=== PATIENT | female | born 1955 | race Caucasian/White ===

== ENCOUNTER 2018-01-11 19:21 | Emergency (ER) | payer OTHER, BC ==
--- NOTE | 2018-01-11 19:45 | PDOC ---
Rapid Medical Evaluation Time Seen by Provider: 01/11/18 19:43 Medical Evaluation: 01/11/18 19:43 I have performed a brief in-person evaluation of this patient. The patient presents with a chief complaint of:R knee pain s/p mechanical fall yesterday Pertinent physical exam findings:abrasion to L elbow, no R knee swelling, FROMI , able to ambulate I have ordered the following:nothing The patient will proceed to the ED for further evaluation. Discharge Disposition - Diagnosis Knee injury Qualifiers: Encounter type: initial encounter Laterality: right Qualified Code(s): S89.91XA - Unspecified injury of right lower leg, initial encounter - Referrals - Patient Instructions - Post Discharge Activity
[2018-01-11 19:48] VITALS: BP 156/72; PULSE 97; TEMP 98.7; BMI 24.7
[2018-01-11] MEDS ORDERED: IBUPROFEN 600 MG TABLET (FP) PO ONE ×2 (20:16→20:25)
--- NOTE | 2018-01-11 20:20 | PDOC ---
History of Present Illness - General Chief Complaint: Pain Stated Complaint: FALL/INJURY Time Seen by Provider: 01/11/18 19:43 History Source: Patient Exam Limitations: No Limitations - History of Present Illness Initial Comments: 01/11/18 20:16 pt slipped and fell at work yesterday injured right knee. pt has continued pain to the knee. Past History - Past Medical History Allergies/Adverse Reactions: Allergies Allergy/AdvReac Type Severity Reaction Status Date / Time Penicillins Allergy Severe Hives Verified 01/11/18 19:49 Home Medications: Ambulatory Orders Naproxen [Naprosyn -] 500 mg PO BID #14 tablet 01/11/18 COPD: No Other medical history: Pt denies - Suicide/Smoking/Psychosocial Hx Smoking History: Never smoked Have you smoked in the past 12 months: No Information on smoking cessation initiated: No Hx Alcohol Use: No Drug/Substance Use Hx: No Substance Use Type: None Review of Systems - Review of Systems Able to Perform ROS?: Yes Is the patient limited German proficient: No Constitutional: No: Symptoms Reported Musculoskeletal: Yes: Symptoms Reported *Physical Exam - Vital Signs Last Vital Signs Temp Pulse Resp BP Pulse Ox 98.7 F 97 H 20 156/72 100 01/11/18 19:46 01/11/18 19:46 01/11/18 19:46 01/11/18 19:46 01/11/18 19:46 - Physical Exam General Appearance: Yes: Nourished, Appropriately Dressed HEENT: positive: EOMI, NIKKIE Extremity: positive: Normal Capillary Refill, Tender (medially right knee , soft tissue tenderness, FROM mild swelling noted ) Integumentary: positive: Normal Color, Dry, Warm Neurologic: positive: Fully Oriented, Alert, Normal Mood/Affect, Normal Response , Motor Strength 5/5 Procedures - Splinting Pre-Made Type: knee immobilizer ED Treatment Course - RADIOLOGY Radiology Studies Ordered: Category Date Time Status KNEE 3 POS-RIGHT [RAD] Stat Radiology 01/11/18 20:16 Ordered Medical Decision Making - Medical Decision Making 01/11/18 20:17 cc: right knee injury yesterday at work will get xray to r/o fracture ibuprofen for pain now ortho follow up *DC/Admit/Observation/Transfer Diagnosis at time of Disposition: Knee injury Qualifiers: Encounter type: initial encounter Laterality: right Qualified Code(s): S89.91XA - Unspecified injury of right lower leg, initial encounter - Discharge Dispostion Disposition: HOME Condition at time of disposition: Good - Prescriptions Prescriptions: Naproxen [Naprosyn -] 500 mg PO BID #14 tablet - Referrals Referrals: Lanny Christine MD [Primary Care Provider] - Kulwant Frederick MD [Staff Physician] - - Patient Instructions Additional Instructions: follow with the orthopedist next week elevate and apply ice every 2hrs for 20 minutes take naprosyn for pain as needed, you can also try an over the counter aspercream or icy hot to rub into the muscle areas use the knee immobilizer while awake remove to sleep and bathe - Post Discharge Activity
== END 2018-01-11 21:13 | disposition home or self-care (01) ==
LOC: JERFT 19:21
DX: S89.81XA Other specified injuries of right lower leg, initial encounter (principal); W18.39XA Other fall on same level, initial encounter; Y93.89 Activity, other specified; Y92.218 Other school as the place of occurrence of the external cause; Y99.0 Civilian activity done for income or pay
CPT/HCPCS: 73562-TC-RT-FY; 99281-25

== ENCOUNTER → 2022-04-11 | Day surgery (SDC) | payer OTHER | END | disposition home or self-care (01) | LOC: JRADIR 10:33 | PROVIDERS: ATTEND Internal Medicine Endocrinology, Diabetes & Metabolism | PROC: 0G9H3ZX Drainage of Right Thyroid Gland Lobe, Percutaneous Approach, Diagnostic (ICD-10-PCS; principal; 2022-04-11) | DX: E04.1 Nontoxic single thyroid nodule (principal) | CPT/HCPCS: 10005; 76942; 88173; 88305-TC ==

== ENCOUNTER 2022-06-01 20:43 | Emergency (ER) | payer OTHER ==
[2022-06-01 21:00] VITALS: RESP 20; TEMP 98.7; BMI 30.7
[2022-06-01] MEDS ORDERED: MAG HYDROX/AL HYDROX/SIMETH 30 ML UNIT-DOSE CUP PO ONE (21:38)
[2022-06-01] MEDS ORDERED: FAMOTIDINE 20 MG/50 ML IVPB 20 MG/50 ML MG IVPB ONE ×2 (21:38→21:55)
[2022-06-01] MEDS ORDERED: ONDANSETRON 4 MG/2 ML VIAL IVPUSH ONE (21:38)
[2022-06-01] MEDS ORDERED: SODIUM CHLORIDE 0.9% 1000 ML INFUS.BAG IV ONE (21:38)
[2022-06-01] MEDS ORDERED: ACETAMINOPHEN 1000 MG/100 ML BAG IVPB ONE (21:38)
[2022-06-01 21:53] LABS: EPI CELLS 1 /uL (0-25.1); HYALINE CASTS 1 /uL (0-3.1); URINE APPEARANCE CLOUDY; URINE BACTERIA 6478 /uL (0-1359); URINE BILIRUBIN NEGATIVE (NEGATIVE); URINE COLOR RED; URINE GLUCOSE (UA) NEGATIVE (NEGATIVE); URINE KETONE NEGATIVE (NEGATIVE); URINE LEUK ESTERASE 3+ (NEGATIVE); URINE NITRITE NEGATIVE (NEGATIVE); URINE PROTEIN 2+ (NEGATIVE); URINE RBC 904 /uL (0-23.9); URINE UROBILINOGEN 0.2 mg/dL (0.2-1.0); URINE WBC 964 /uL (0-25.8)
[2022-06-01] MEDS ORDERED: ACETAMINOPHEN INJECTION 100 ML IVPB ONE (21:55)
[2022-06-01] MEDS ORDERED: MAG HYDROX/AL HYDROX/SIMETH 30 ML UNIT-DOSE CUP ONE (21:55)
[2022-06-01] MEDS ORDERED: ONDANSETRON 4 MG/2 ML VIAL ONE (21:55)
[2022-06-01] MEDS ORDERED: CEFTRIAXONE 1 GM in DEXTROSE 5%-WATER - 100 ML IVPB ONE (22:22)
[2022-06-01 22:32] LABS: BASO % 0.6 % (0-2.0); EOS % 0.9 % (0-4.5); HEMATOCRIT 37.2 % (32.4-45.2); HEMOGLOBIN 12.5 GM/dL (10.7-15.3); MCHC 33.6 g/dl (32.0-36.0); MEAN CELL VOLUME 86.2 fl (80-96); MEAN PLT VOLUME 8.6 fl (7.5-11.1); MONO % 8.5 % (3.8-10.2); PLATELET COUNT 296 10^3/uL (134-434); RBC 4.31 M/mm3 (3.60-5.2); RDW 13.2 % (11.6-15.6); WHITE BLOOD COUNT 12.1 K/mm3 (4.0-10.0)
[2022-06-01 22:39] LABS: INR 1.08 (0.83-1.09); PROTHROMBIN TIME (PATIENT) 12.5 SEC (9.7-13.0)
[2022-06-01 22:42] LABS: ACTIVATED PTT 27.8 SECONDS (25.2-36.5)
[2022-06-01 22:47] LABS: ALBUMIN 3.9 g/dl (3.4-5.0); BLOOD UREA NITROGEN 15.2 mg/dL (7-18); CALCIUM 9.5 mg/dL (8.5-10.1)
[2022-06-01 22:50] LABS: CREATININE 0.7 mg/dL (0.55-1.3)
[2022-06-01 22:52] LABS: BILIRUBIN,TOTAL 0.3 mg/dL (0.2-1); TOT PROT 7.6 g/dl (6.4-8.2)
[2022-06-02] MEDS ORDERED: CEFTRIAXONE 1 GM/50 ML BAG ONE (00:21)
[2022-06-02 00:44] VITALS: BP 135/69; PULSE 88
== END 2022-06-02 00:41 | disposition home or self-care (01) ==
LOC: JER 20:43
PROC: 3E033GC Introduction of Other Therapeutic Substance into Peripheral Vein, Percutaneous Approach (ICD-10-PCS; principal; 2022-06-01)
DX: N39.0 Urinary tract infection, site not specified (principal); N13.30 Unspecified hydronephrosis
CPT/HCPCS: 36415; 74176-TC; 80053; 81003; 83690; 85025; 85610; 85730; 86850; 86900; 86901; 87086; 87186; 99285-25

== ENCOUNTER 2022-06-12 18:39 | Emergency (ER) | payer OTHER ==
[2022-06-12 18:57] VITALS: RESP 18; BMI 27.4
[2022-06-12] MEDS ORDERED: LIDOCAINE VISCOUS 2% ORAL/TOP 15 ML UNIT-DOSE CUP MM ONE (22:42)
[2022-06-12] MEDS ORDERED: MAG HYDROX/AL HYDROX/SIMETH -MYLANTA- ORAL SUSPENSION PO ONE (22:42)
[2022-06-12] MEDS ORDERED: FAMOTIDINE 20 MG/50 ML IVPB 20 MG/50 ML MG IVPB ONE ×2 (22:42→23:22)
[2022-06-12] MEDS ORDERED: SUCRALFATE 1 GM/10 ML UNIT DOSE CUPS PO ONE (22:43)
[2022-06-12] MEDS ORDERED: SODIUM CHLORIDE 0.9% 500 ML INFUS.BAG IV ONE (22:54)
[2022-06-12 23:04] LABS: BASO % 0.5 % (0-2.0); EOS % 1.4 % (0-4.5); HEMATOCRIT 37.8 % (32.4-45.2); HEMOGLOBIN 12.6 GM/dL (10.7-15.3); LYMPH % 31.6 % (8-40); MCH 28.6 pg (25.7-33.7); MCHC 33.2 g/dl (32.0-36.0); MEAN CELL VOLUME 86.2 fl (80-96); MEAN PLT VOLUME 8.6 fl (7.5-11.1); MONO % 7.2 % (3.8-10.2); NEUT % 59.3 % (42.8-82.8); PLATELET COUNT 383 10^3/uL (134-434); RBC 4.39 M/mm3 (3.60-5.2); RDW 12.9 % (11.6-15.6); WHITE BLOOD COUNT 9.4 K/mm3 (4.0-10.0)
[2022-06-12] MEDS ORDERED: SUCRALFATE 1 GM TABLET (FP) ONE (23:21)
[2022-06-12] MEDS ORDERED: LIDOCAINE VISCOUS 2% ORAL/TOP 15 ML UNIT-DOSE CUP ONE (23:22)
[2022-06-12] MEDS ORDERED: MAG HYDROX/AL HYDROX/SIMETH 30 ML UNIT-DOSE CUP ONE (23:22)
[2022-06-12 23:25] LABS: BLOOD UREA NITROGEN 21.1 mg/dL (7-18); CALCIUM 9.8 mg/dL (8.5-10.1)
[2022-06-12 23:29] LABS: CREATININE 0.8 mg/dL (0.55-1.3)
[2022-06-12 23:30] LABS: BILIRUBIN,TOTAL 0.3 mg/dL (0.2-1); TOT PROT 7.8 g/dl (6.4-8.2)
[2022-06-12 23:39] VITALS: BP 141/74; PULSE 71; TEMP 98.1
== END 2022-06-13 02:12 | disposition home or self-care (01) ==
LOC: JER 18:39
PROC: 3E033GC Introduction of Other Therapeutic Substance into Peripheral Vein, Percutaneous Approach (ICD-10-PCS; principal; 2022-06-12)
DX: R07.89 Other chest pain (principal); R10.13 Epigastric pain
CPT/HCPCS: 36415; 71046-TC-FY; 80053; 84484; 85025; 93005; 93010; 99285-25

== ENCOUNTER 2023-07-13 04:24 | Day surgery (SDC) | payer MEDICARE, OTHER ==
[2023-07-05 12:39] VITALS: BMI 27.1
[2023-07-13] MEDS ORDERED: TRIAMCINOLONE ACET 40MG/1ML VIAL ONE (07:28)
[2023-07-13] MEDS ORDERED: LIDOCAINE HCL/PF 1% SDV 5ML VIAL ONE (07:28)
[2023-07-13] MEDS ORDERED: BUPIVACAINE HCL/PF 0.5% (5MG/ML) 10 ML VIAL ONE (07:28)
[2023-07-13 08:00] VITALS: RESP 18
[2023-07-13] MEDS ORDERED: ACETAMINOPHEN 500 MG TABLET (FP) PO PRN (08:27)
[2023-07-13] MEDS: LIDOCAINE HCL 1%, 10 MG/ML (20ML VIAL) INF ONE ×2 (09:24)
[2023-07-13] MEDS: IOHEXOL 180 MG/1 ML ML IT ONE ×2 (09:24)
[2023-07-13] MEDS: BUPIVACAINE HCL/PF 0.5% (5MG/ML) 10 ML VIAL IJ ONE ×2 (09:24)
[2023-07-13] MEDS: TRIAMCINOLONE ACETONIDE 40 MG/ML 10 ML VIAL IJ ONE ×2 (09:24)
[2023-07-13] MEDS: LIDOCAINE HCL 1% PRESERVATIVE FREE - 30ML VIAL INF ONE (09:24)
[2023-07-13 09:49] VITALS: BP 153/77; PULSE 68; TEMP 97.8
== END 2023-07-13 10:19 | disposition home or self-care (01) ==
LOC: JASU-SURG 04:24
PROVIDERS: ATTEND Pain Medicine Pain Medicine
PROC: 3E0U3BZ Introduction of Anesthetic Agent into Joints, Percutaneous Approach (ICD-10-PCS; 2023-07-13)
PROC: 3E0U33Z Introduction of Anti-inflammatory into Joints, Percutaneous Approach (ICD-10-PCS; principal; 2023-07-13 09:15)
DX: M53.3 Sacrococcygeal disorders, not elsewhere classified (principal)
CPT/HCPCS: 76000-TC-FY

== ENCOUNTER 2023-09-07 04:03 | Day surgery (SDC) | payer MEDICARE, OTHER ==
[2023-08-31 12:20] VITALS: BMI 27.1
[2023-09-07] MEDS ORDERED: DEXAMETHASONE SOD PHOSPHATE 10 MG/1 ML VIAL ONE (07:29)
[2023-09-07] MEDS: IOHEXOL 180 MG/1 ML ML IJ ONE ×2 (14:09)
[2023-09-07] MEDS: LIDOCAINE 1% P/F 10 MG/ML VIAL INF ONE ×3 (14:09)
[2023-09-07] MEDS: DEXAMETHASONE SOD PHOSPHATE 10 MG/1 ML VIAL IVPUSH ONE ×2 (14:09)
[2023-09-07 14:40] VITALS: RESP 18
[2023-09-07 14:50] VITALS: BP 128/60; PULSE 80; TEMP 97.8
[2023-09-07] MEDS ORDERED: ACETAMINOPHEN 500 MG TABLET (FP) PO PRN (15:03)
== END 2023-09-07 15:02 | disposition home or self-care (01) ==
LOC: JASU-SURG 04:03
PROVIDERS: ATTEND Pain Medicine Pain Medicine
PROC: 3E0R3BZ Introduction of Anesthetic Agent into Spinal Canal, Percutaneous Approach (ICD-10-PCS; 2023-09-07)
PROC: 3E0R33Z Introduction of Anti-inflammatory into Spinal Canal, Percutaneous Approach (ICD-10-PCS; principal; 2023-09-07 17:30)
DX: M54.16 Radiculopathy, lumbar region (principal)
CPT/HCPCS: 76000-TC-FY; J1100

== ENCOUNTER → 2023-11-09 | Day surgery (SDC) | payer MEDICARE, OTHER | END | disposition home or self-care (01) | LOC: JRADIR 09:16 | PROVIDERS: ATTEND Internal Medicine Endocrinology, Diabetes & Metabolism | PROC: 0G9G3ZX Drainage of Left Thyroid Gland Lobe, Percutaneous Approach, Diagnostic (ICD-10-PCS; principal; 2023-11-09) | DX: E04.1 Nontoxic single thyroid nodule (principal) | CPT/HCPCS: 10005; 76942; 88173; 88305-TC ==

== ENCOUNTER 2023-12-13 04:21 | Day surgery (SDC) | payer MEDICARE, OTHER ==
[2023-12-11 10:37] VITALS: BMI 27.1
[2023-12-13 07:03] VITALS: RESP 18
[2023-12-13] MEDS ORDERED: LIDOCAINE HCL/PF 1% SDV 5ML VIAL ONE (07:13)
[2023-12-13] MEDS: LIDOCAINE 1% P/F 10 MG/ML VIAL PNB ONE ×3 (09:08)
[2023-12-13 11:28] VITALS: BP 124/60; PULSE 60; TEMP 97.8
[2023-12-13] MEDS ORDERED: ACETAMINOPHEN 500 MG TABLET (FP) PO PRN (12:49)
== END 2023-12-13 10:12 | disposition home or self-care (01) ==
LOC: JASU-SURG 04:21
PROVIDERS: ATTEND Pain Medicine Pain Medicine
PROC: 01HY3MZ Insertion of Neurostimulator Lead into Peripheral Nerve, Percutaneous Approach (ICD-10-PCS; principal; 2023-12-13 08:30)
DX: G89.4 Chronic pain syndrome (principal)
CPT/HCPCS: 64555; C1778

== ENCOUNTER 2024-10-23 07:45 | Day surgery (SDC) | payer MEDICARE, OTHER ==
[2024-10-21 12:19] VITALS: BMI 27.3
[2024-10-23] MEDS ORDERED: DEXAMETHASONE SOD PHOSPHATE 10 MG/1 ML VIAL ONE (07:58)
[2024-10-23] MEDS ORDERED: LIDOCAINE HCL/PF 1% SDV 5ML VIAL ONE (10:55)
[2024-10-23] MEDS: IOHEXOL 180 MG/1 ML ML IJ ONE (15:36)
[2024-10-23] MEDS: DEXAMETHASONE SOD PHOSPHATE 10 MG/1 ML VIAL IVPUSH ONE (15:36)
[2024-10-23] MEDS: LIDOCAINE HCL 1% PRESERVATIVE FREE - 30ML VIAL IJ ONE (15:36)
[2024-10-23] MEDS ORDERED: ACETAMINOPHEN 500 MG TABLET (FP) ONE (15:50)
[2024-10-23] MEDS: ACETAMINOPHEN 500 MG TABLET (FP) PO PRN (15:55)
[2024-10-23 16:10] VITALS: BP 125/67; PULSE 80; RESP 20; TEMP 97.3
== END 2024-10-23 16:14 | disposition home or self-care (01) ==
LOC: JASU-SURG 07:45
PROVIDERS: ATTEND Pain Medicine Pain Medicine
PROC: 3E0R3BZ Introduction of Anesthetic Agent into Spinal Canal, Percutaneous Approach (ICD-10-PCS; 2024-10-23)
PROC: 3E0R33Z Introduction of Anti-inflammatory into Spinal Canal, Percutaneous Approach (ICD-10-PCS; principal; 2024-10-23 15:30)
DX: M54.16 Radiculopathy, lumbar region (principal)
CPT/HCPCS: 76000-TC-FY; J1100

== ENCOUNTER → 2024-12-24 | Day surgery (SDC) | payer MEDICARE | END | disposition home or self-care (01) | LOC: JRADIR 09:17 | PROVIDERS: ATTEND Internal Medicine Endocrinology, Diabetes & Metabolism | PROC: 0GBH3ZX Excision of Right Thyroid Gland Lobe, Percutaneous Approach, Diagnostic (ICD-10-PCS; principal; 2024-12-24) | DX: E04.1 Nontoxic single thyroid nodule (principal); R89.6 Abnormal cytological findings in specimens from other organs, systems and tissues | CPT/HCPCS: 10005; 76942; 88173; 88305-TC ==